=== PATIENT | male | born 1980 | race Caucasian/White ===

== ENCOUNTER 2017-07-04 01:09 | Emergency (ER) | payer MEDICAID, SELFPAY ==
[2017-07-04 01:19] VITALS: BP 152/100; PULSE 70; RESP 18; TEMP 36.6; O2SAT 98; BMI 21.2
--- NOTE | 2017-07-04 01:28 | [facility].EDDENT ---
ED Disposition Clinical Impression: Dental cavities Disposition: Home, Self-Care Condition on Discharge: Good Instructions: DI for Tooth Decay Additional Instructions: Please take the medications as directed, follow up with dentist rashard!!! Prescriptions: cephALEXin [Keflex 500mg Cap] 500 mg PO Q6H #28 cap Etodolac [Etodolac 200mg Cap] 200 mg PO BID PRN #20 cap PRN Reason: Moderate Pain Referrals: Mechelle Bob APRN [Primary Care Provider] - Time of Disposition: 01:28 - Critical Care Critical Care Time: No Attestation: On 07/04/17, the high probability of a clinically significant, sudden or life threatening deterioration of the following system(s) required my full and direct attention, intervention and personal management. The time I documented below is in addition to time spent performing reported procedures but includes the following listed in this critical care notation. Medical Decision Making - Medical Records Medical records reviewed: Yes: I reviewed the patient's medical records. - Ted Inquiry Pt receiving controlled substance: No Vital Signs: 07/04/17 01:19 Temperature 97.9 F Temperature Source Oral Pulse Rate [Right Radial] 70 Respiratory Rate 18 Blood Pressure [Right Arm] 152/100 Blood Pressure Mean [Right Arm] 117 Blood Pressure Source [Right Arm] Automatic Cuff Blood Pressure Position [Right Arm] Sitting 02 Sat by Pulse Oximetry 98 Oxygen Delivery Method Room Air - Reevaluation(s) Time: 01:35 Reevaluation #1: Instructed patient to follow-up with his dentist rashard. Dental HPI - General Chief complaint: Dental/Oral Stated complaint: Dental Pain Time Seen by Provider: 07/04/17 01:20 Mode of Arrival: Ambulatory Source of Information: Patient Limitations: No Limitations Description of Symptoms (Recalled from ER Triage Doc. by RN): Pt reports bilateral jaw and ear pain - History of Present Illness MD Complaint: tooth pain Location: Tooth # (all teeth) Onset (ago): month(s) (6) Duration: intermittent Severity: mild Severity scale (1-10): 2 Relieving factors: other (nothing tried) Exacerbating factors: cold, heat, drinking fluids, swallowing Context: history of dental caries Treatment prior to arrival: none - Related Data Previous Rx's Medication Instructions Recorded Etodolac [Etodolac 200mg Cap] 200 mg PO BID PRN #20 cap 07/04/17 cephALEXin [Keflex 500mg Cap] 500 mg PO Q6H #28 cap 07/04/17 Allergies Allergy/AdvReac Type Severity Reaction Status Date / Time No Known Allergies Allergy Verified 07/04/17 01:24 [facility] History I have reviewed the patient's past medical history: Yes Medical History: Reports:: Hyperlipidemia Other Surgeries: Yes: Appendectomy Amputation: No Fractures: No - Social History Smoking Status: Current every day smoker Tobacco Type: cigarettes # Packs/Day (cigarettes): 1 Alcohol Intake: never Substance Use Type: former substance user, prescription drug - Psychiatric History Expresses thoughts of harming self/others: None Suicide Plan Description: No Plan Family Hx:: Diabetes ROS Obtained: Yes All systems reviewed & no additional complaints, Yes Systems reviewed as appropriate & no additional complaints - ENT Ears, Nose, Mouth, and Throat: Reports system reviewed and no additional complaints, except as docu, Reports as per HPI, Reports other (dental pain) Physical Exam - General General appearance: alert, in distress (mild) - Head Head exam: atraumatic, normocephalic, normal inspection - ENT ENT exam: Present: normal oropharynx, other (multiple dental cavities) - Neck Neck exam: Present: normal inspection, full ROM, trachea midline. Absent: meningismus, lymphadenopathy - Chest Chest inspection: Present: normal inspection, symmetric chest wall rise. Absent: tenderness - Respiratory Respiratory exam: Present: normal lung sounds bilaterally. Absent: respiratory distress - Cardiovascular Cardiovascular exam: P
--- NOTE | 2017-07-04 01:31 | ED_ITS ---
ED Disposition Clinical Impression: Dental cavities Disposition: Home, Self-Care Condition on Discharge: Good Instructions: DI for Tooth Decay Additional Instructions: Please take the medications as directed, follow up with dentist rashard!!! Prescriptions: cephALEXin [Keflex 500mg Cap] 500 mg PO Q6H #28 cap Etodolac [Etodolac 200mg Cap] 200 mg PO BID PRN #20 cap PRN Reason: Moderate Pain Referrals: Mechelle Bob APRN [Primary Care Provider] - Time of Disposition: 01:28 - Critical Care Critical Care Time: No Attestation: On 07/04/17, the high probability of a clinically significant, sudden or life threatening deterioration of the following system(s) required my full and direct attention, intervention and personal management. The time I documented below is in addition to time spent performing reported procedures but includes the following listed in this critical care notation. Medical Decision Making - Medical Records Medical records reviewed: Yes: I reviewed the patient's medical records. - Ted Inquiry Pt receiving controlled substance: No Vital Signs: 07/04/17 01:19 Temperature 97.9 F Temperature Source Oral Pulse Rate [Right Radial] 70 Respiratory Rate 18 Blood Pressure [Right Arm] 152/100 Blood Pressure Mean [Right Arm] 117 Blood Pressure Source [Right Arm] Automatic Cuff Blood Pressure Position [Right Arm] Sitting 02 Sat by Pulse Oximetry 98 Oxygen Delivery Method Room Air - Reevaluation(s) Time: 01:35 Reevaluation #1: Instructed patient to follow-up with his dentist rashard. Dental HPI - General Chief complaint: Dental/Oral Stated complaint: Dental Pain Time Seen by Provider: 07/04/17 01:20 Mode of Arrival: Ambulatory Source of Information: Patient Limitations: No Limitations Description of Symptoms (Recalled from ER Triage Doc. by RN): Pt reports bilateral jaw and ear pain - History of Present Illness MD Complaint: tooth pain Location: Tooth # (all teeth) Onset (ago): month(s) (6) Duration: intermittent Severity: mild Severity scale (1-10): 2 Relieving factors: other (nothing tried) Exacerbating factors: cold, heat, drinking fluids, swallowing Context: history of dental caries Treatment prior to arrival: none - Related Data Previous Rx's Medication Instructions Recorded Etodolac [Etodolac 200mg Cap] 200 mg PO BID PRN #20 cap 07/04/17 cephALEXin [Keflex 500mg Cap] 500 mg PO Q6H #28 cap 07/04/17 Allergies Allergy/AdvReac Type Severity Reaction Status Date / Time No Known Allergies Allergy Verified 07/04/17 01:24 [facility] History I have reviewed the patient's past medical history: Yes Medical History: Reports:: Hyperlipidemia Other Surgeries: Yes: Appendectomy Amputation: No Fractures: No - Social History Smoking Status: Current every day smoker Tobacco Type: cigarettes # Packs/Day (cigarettes): 1 Alcohol Intake: never Substance Use Type: former substance user, prescription drug - Psychiatric History Expresses thoughts of harming self/others: None Suicide Plan Description: No Plan Family Hx:: Diabetes ROS Obtained: Yes All systems reviewed & no additional complaints, Yes Systems reviewed as appropriate & no additional complaints - ENT Ears, Nose, Mouth, and Throat: Reports system reviewed and no additional complaints, except as Indigo parra
[2017-07-04 01:47] VITALS: BP 155/89; PULSE 78; RESP 18; TEMP 36.6; O2SAT 99
== END 2017-07-04 01:47 | disposition home or self-care (01) ==
PROVIDERS: Emergency Provider Emergency Medicine; Family Provider Physician Assistant; PCP Nurse Practitioner Family
DX: K21.9 Gastro-esophageal reflux disease without esophagitis (principal); E78.5 Hyperlipidemia, unspecified; F17.210 Nicotine dependence, cigarettes, uncomplicated
CPT/HCPCS: 99281